=== PATIENT | female | born 1960 | race Caucasian/White ===

== ENCOUNTER 2017-12-19 16:28 | Inpatient (IN) | payer MEDICARE, OTHER ==
[2017-12-19] MEDS ORDERED: 0.9 % SODIUM CHLORIDE 10 ML DISP.SYRIN. IV (16:45)
[2017-12-19 17:00] LABS: BILIRUBIN,URINE SMALL (NEG); CLARITY,URINE CLEAR; GLUCOSE,URINE >=1000 mg/dL (NEG); NITRITE,URINE NEGATIVE (NEG); PROTEIN,URINE 30 mg/dL (NEG-TRACE); UROBILINOGEN,URINE 0.2 mg/dL (0.2 mg/dL)
[2017-12-19] MEDS: IPRATRPIUM/ALBUTEROL 0.5/2.5MG 3 ML NEBU. NEB ×2 (17:05→20:00)
[2017-12-19] MEDS: ALBUTEROL SULFATE 2.5 MG/3 ML NEBU. CONT NEB (17:05)
[2017-12-19] MEDS: ONDANSETRON PF 4 MG/2 ML VIAL. IV ×2 (17:06→23:54)
[2017-12-19] MEDS: IV NORMAL SALINE 1000ML BAG 1,000 ML IV (17:06)
[2017-12-19] MEDS: methylPREDNISolone SOD SUCC PF 125 MG/2 ML VIAL. IV (17:06)
[2017-12-19 17:09] LABS: ADD MAN DIFF? NO
[2017-12-19 17:10] LABS: BASO # 0.1 x10^3/uL (0.0-0.2); BASO % 1 % (0-3); EOS # 0.1 x10^3/uL (0.0-0.7); EOS % 1 % (0-3); HEMATOCRIT 52.5 % (36.0-47.0); HEMOGLOBIN 17.2 g/dL (12.0-15.5); LYMPH # 1.9 x10^3/uL (1.0-4.8); LYMPH % 14 % (24-48); MEAN CORPUSCULAR HEMOGLOBIN 30 pg (25-35); MEAN CORPUSCULAR HGB CONC 33 g/dL (31-37); MEAN CORPUSCULAR VOLUME 91 fL (79-100); MONO # 1.3 x10^3/uL (0.0-1.1); MONO % 9 % (0-9); NEUT # 10.4 x10^3uL (1.8-7.7); NEUT % 76 % (31-73); PLATELET COUNT 267 x10^3/uL (140-400); RED BLOOD COUNT 5.76 x10^6/uL (3.50-5.40); RED CELL DISTRIBUTION WIDTH 14.6 % (11.5-14.5); WHITE BLOOD COUNT 13.7 x10^3/uL (4.0-11.0)
[2017-12-19 17:14] LABS: COLOR,URINE DK YELLOW
[2017-12-19 17:18] LABS: BACTERIA,URINE FEW /HPF (0-FEW); SQUAMOUS EPITHELIAL CELL,UR MANY /LPF
[2017-12-19 17:20] LABS: INFLUENZA A PATIENT NEGATIVE (NEGATIVE); INFLUENZA B PATIENT NEGATIVE (NEGATIVE); OBC FLU VALID
[2017-12-19 17:30] LABS: LACTIC ACID 1.5 mmol/L (0.4-2.0)
[2017-12-19 17:35] LABS: ANION GAP 12 (6-14); BLOOD UREA NITROGEN 41 mg/dL (7-20); CALCIUM 9.9 mg/dL (8.5-10.1); CARBON DIOXIDE 28 mmol/L (21-32); CHLORIDE 91 mmol/L (98-107); GFR 57.1; GLUCOSE 278 mg/dL (70-99); POTASSIUM 4.6 mmol/L (3.5-5.1); SODIUM 131 mmol/L (136-145)
[2017-12-19 17:36] LABS: TROPONINI < 0.017 ng/mL (0.000-0.055)
[2017-12-19 17:39] LABS: ALBUMIN 3.8 g/dL (3.4-5.0); ALK PHOS 140 U/L (46-116); ALT (SGPT) 25 U/L (14-59); AST (SGOT) 14 U/L (15-37); DIRECT BILIRUBIN 0.4 mg/dL (0.0-0.2); LIPASE 126 U/L (73-393); MAGNESIUM 2.6 mg/dL (1.8-2.4); TOTAL BILIRUBIN 1.3 mg/dL (0.2-1.0)
[2017-12-19 17:41] LABS: NT-PRO BNP 75 pg/mL (0-124)
[2017-12-19 17:49] LABS: CREATINE KINASE 33 U/L (26-192)
[2017-12-19] MEDS: LIDO:MAALOX:DONNATAL 1:1:1 15 ML SINGLE DOSE SWSW (18:18)
[2017-12-19] MEDS: FAMOTIDINE 20 MG/2 ML VIAL IVP (18:20)
[2017-12-19] MEDS: IOHEXOL 300 MG/ML 100ML VIAL. IV (18:45)
[2017-12-19 18:50] LABS: ACETAMIN < 2 mcg/ml (10-30)
[2017-12-19] MEDS ORDERED: CONTRAST GIVEN MC (19:00)
[2017-12-19] MEDS ORDERED: ACETAMINOPHEN 325 MG TABLET. PO (19:15)
[2017-12-19] MEDS: HYDROCORTISONE SOD SUCC/PF 100 MG/2 ML VIAL. IV (19:48)
[2017-12-19] MEDS: HYDROcodone/APAP 10/325 1 TAB TABLET PO (20:22)
[2017-12-19] MEDS ORDERED: ALBUTEROL SULFATE 8GM INHALER. INH (23:30)
[2017-12-19 23:33] LABS: POC GLUCOSE 413 mg/dL (70-99)
[2017-12-19] MEDS ORDERED: ALBUTEROL SULFATE 2.5 MG/3 ML NEBU. NEB (23:45)
[2017-12-19] MEDS: SIMVASTATIN 40 MG TABLET. PO (23:57)
[2017-12-20] MEDS: HYDROcodone/APAP 5/325MG 1 TAB TABLET PO ×3 (00:02→20:41)
[2017-12-20] MEDS: IV NORMAL SALINE 1000ML BAG 1,000 ML IV ×3 (00:02→11:02)
[2017-12-20] MEDS: INSULIN DETEMIR 300 UNITS/3 ML INSULN.PEN. SQ ×2 (00:10→20:46)
[2017-12-20 01:34] LABS: TROPONINI < 0.170 ng/mL (0.000-0.055)
[2017-12-20] MEDS: IPRATRPIUM/ALBUTEROL 0.5/2.5MG 3 ML NEBU. NEB ×4 (07:08→19:16)
[2017-12-20] MEDS ORDERED: INSULIN ASPART 300 UNITS/3 ML INSULN.PEN SQ (08:15)
[2017-12-20 08:29] LABS: POC GLUCOSE 374 mg/dL (70-99)
[2017-12-20] MEDS: ALPRAZolam 0.25 MG TABLET PO ×3 (08:32→20:40)
[2017-12-20] MEDS: ONDANSETRON PF 4 MG/2 ML VIAL. IV (08:32)
[2017-12-20] MEDS: INSULIN ASPART 300 UNITS/3 ML INSULN.PEN SQ ×4 (08:38→17:29)
[2017-12-20 08:59] LABS: ALBUMIN 3.8 g/dL (3.4-5.0); ALBUMIN/GLOBULIN RATIO 0.9 (1.0-1.7); ALK PHOS 144 U/L (46-116); ALT (SGPT) 23 U/L (14-59); ANION GAP 15 (6-14); AST (SGOT) 14 U/L (15-37); BLOOD UREA NITROGEN 33 mg/dL (7-20); BUN/CREATININE RATIO 33 (6-20); CALCIUM 9.7 mg/dL (8.5-10.1); CARBON DIOXIDE 22 mmol/L (21-32); CHLORIDE 91 mmol/L (98-107); GFR 57.1; GLUCOSE 402 mg/dL (70-99); POTASSIUM 5.1 mmol/L (3.5-5.1); SODIUM 128 mmol/L (136-145); TOTAL BILIRUBIN 1.1 mg/dL (0.2-1.0); TOTAL PROTEIN 8.1 g/dL (6.4-8.2)
[2017-12-20 12:04] LABS: POC GLUCOSE 214 mg/dL (70-99)
[2017-12-20] MEDS: FAMOTIDINE 20 MG TABLET. PO (12:04)
[2017-12-20] MEDS: LIDO:MAALOX:DONNATAL 1:1:1 15 ML SINGLE DOSE SWSW (12:05)
[2017-12-20] MEDS: predniSONE 5 MG TABLET PO (12:05)
[2017-12-20] MEDS: cefTRIAXone IV Push 1 GM VIAL. IVP (13:11)
[2017-12-20 17:18] LABS: POC GLUCOSE 267 mg/dL (70-99)
[2017-12-20] MEDS: PANTOPRAZOLE 40 MG TABLET.DR. PO (17:19)
[2017-12-20 19:52] LABS: POC GLUCOSE 233 mg/dL (70-99)
[2017-12-20] MEDS: LISINOPRIL 10 MG TABLET PO ×2 (20:40)
[2017-12-20] MEDS: LACTOBACILLUS RHAMNOSUS GG 1 CAPSULE. PO (20:40)
[2017-12-20] MEDS: SIMVASTATIN 40 MG TABLET. PO (20:40)
[2017-12-20] MEDS ORDERED: FAMOTIDINE 20 MG TABLET. PO (21:00)
[2017-12-21] MEDS: HYDROcodone/APAP 5/325MG 1 TAB TABLET PO ×3 (01:08→21:01)
[2017-12-21] MEDS: INSULIN ASPART 300 UNITS/3 ML INSULN.PEN SQ ×6 (07:30→17:04)
[2017-12-21] MEDS: PANTOPRAZOLE 40 MG TABLET.DR. PO ×2 (07:54→17:00)
[2017-12-21 07:58] LABS: POC GLUCOSE 58 mg/dL (70-99)
[2017-12-21] MEDS: BISMUTH SUBSALICYLATE 262 MG/15 ML ORAL.SUSP 236ML BOTTLE. PO (08:32)
[2017-12-21] MEDS: predniSONE 5 MG TABLET PO (09:15)
[2017-12-21] MEDS: LACTOBACILLUS RHAMNOSUS GG 1 CAPSULE. PO ×2 (09:15→21:00)
[2017-12-21] MEDS: ALPRAZolam 0.25 MG TABLET PO ×2 (09:15→21:00)
[2017-12-21 09:25] LABS: ADD MAN DIFF? NO
[2017-12-21 09:31] LABS: BASO % 0 % (0-3); EOS % 0 % (0-3); HEMATOCRIT 49.2 % (36.0-47.0); HEMOGLOBIN 15.8 g/dL (12.0-15.5); LYMPH % 23 % (24-48); MEAN CORPUSCULAR HEMOGLOBIN 29 pg (25-35); MEAN CORPUSCULAR HGB CONC 32 g/dL (31-37); MEAN CORPUSCULAR VOLUME 92 fL (79-100); MONO # 1.3 x10^3/uL (0.0-1.1); MONO % 10 % (0-9); NEUT # 8.8 x10^3uL (1.8-7.7); NEUT % 67 % (31-73); PLATELET COUNT 284 x10^3/uL (140-400); RED BLOOD COUNT 5.36 x10^6/uL (3.50-5.40); RED CELL DISTRIBUTION WIDTH 14.4 % (11.5-14.5); WHITE BLOOD COUNT 13.1 x10^3/uL (4.0-11.0)
[2017-12-21 09:42] LABS: ANION GAP 7 (6-14); BLOOD UREA NITROGEN 20 mg/dL (7-20); CALCIUM 9.4 mg/dL (8.5-10.1); CARBON DIOXIDE 30 mmol/L (21-32); CHLORIDE 96 mmol/L (98-107); GFR 57.1; GLUCOSE 76 mg/dL (70-99); POTASSIUM 4.3 mmol/L (3.5-5.1); SODIUM 133 mmol/L (136-145)
[2017-12-21 10:05] LABS: TROPONINI < 0.017 ng/mL (0.000-0.055)
[2017-12-21 11:24] LABS: POC GLUCOSE 110 mg/dL (70-99)
[2017-12-21] MEDS: IV NORMAL SALINE 1000ML BAG 1,000 ML IV (12:01)
[2017-12-21] MEDS: cefTRIAXone IV Push 1 GM VIAL. IVP (12:55)
[2017-12-21 16:04] LABS: POC GLUCOSE 233 mg/dL (70-99)
[2017-12-21] MEDS: SIMVASTATIN 40 MG TABLET. PO (21:01)
[2017-12-21] MEDS: INSULIN DETEMIR 300 UNITS/3 ML INSULN.PEN. SQ (21:07)
[2017-12-22] MEDS: IV NORMAL SALINE 1000ML BAG 1,000 ML IV ×2 (00:01→14:58)
[2017-12-22 04:22] LABS: ADD MAN DIFF? NO
[2017-12-22 04:35] LABS: BASO % 1 % (0-3); EOS # 0.1 x10^3/uL (0.0-0.7); EOS % 1 % (0-3); HEMATOCRIT 41.1 % (36.0-47.0); HEMOGLOBIN 13.5 g/dL (12.0-15.5); LYMPH # 2.6 x10^3/uL (1.0-4.8); LYMPH % 34 % (24-48); MEAN CORPUSCULAR HEMOGLOBIN 31 pg (25-35); MEAN CORPUSCULAR HGB CONC 33 g/dL (31-37); MEAN CORPUSCULAR VOLUME 93 fL (79-100); MONO # 0.7 x10^3/uL (0.0-1.1); MONO % 10 % (0-9); NEUT # 4.3 x10^3uL (1.8-7.7); NEUT % 55 % (31-73); PLATELET COUNT 166 x10^3/uL (140-400); RED BLOOD COUNT 4.44 x10^6/uL (3.50-5.40); RED CELL DISTRIBUTION WIDTH 13.8 % (11.5-14.5); WHITE BLOOD COUNT 7.7 x10^3/uL (4.0-11.0)
[2017-12-22 04:59] LABS: ANION GAP 4 (6-14); BLOOD UREA NITROGEN 16 mg/dL (7-20); CALCIUM 8.2 mg/dL (8.5-10.1); CARBON DIOXIDE 29 mmol/L (21-32); CHLORIDE 101 mmol/L (98-107); CREATININE 0.6 mg/dL (0.6-1.0); GLUCOSE 154 mg/dL (70-99); POTASSIUM 4.1 mmol/L (3.5-5.1); SODIUM 134 mmol/L (136-145)
[2017-12-22] MEDS: INSULIN ASPART 300 UNITS/3 ML INSULN.PEN SQ ×6 (07:30→17:13)
[2017-12-22] MEDS: DEXTROSE 50% 25 GM / 50ML DISP.SYRIN. IV (07:33)
[2017-12-22 07:55] LABS: POC GLUCOSE 141 mg/dL (70-99)
[2017-12-22 08:06] LABS: POC GLUCOSE 53 mg/dL (70-99)
[2017-12-22 08:06] LABS: POC GLUCOSE 198 mg/dL (70-99)
[2017-12-22] MEDS: IV RINGERS,LACTATED 1000ML 1,000 ML IV ×2 (10:14→18:05)
[2017-12-22] MEDS ORDERED: fentaNYL PF VIAL 100 MCG/2 ML VIAL IV ×2 (10:15)
[2017-12-22] MEDS ORDERED: LIDOCAINE 1% PF 2 ML VIAL. ID (10:15)
[2017-12-22] MEDS ORDERED: MIDAZOLAM HCL/PF 2 MG/2 ML VIAL. IV (10:15)
[2017-12-22] MEDS ORDERED: PROPOFOL 20 ML IV (10:28)
[2017-12-22] MEDS ORDERED: MAALOX:LIDO:APAP 6:2:1 ORAL SUSPENSION 180 ML BOTTLE. PO (10:45)
[2017-12-22 11:21] LABS: ACTH 1.7 pg/mL (7.2-63.3)
[2017-12-22 11:43] LABS: POC GLUCOSE 116 mg/dL (70-99)
[2017-12-22] MEDS: predniSONE 5 MG TABLET PO (11:48)
[2017-12-22] MEDS: LACTOBACILLUS RHAMNOSUS GG 1 CAPSULE. PO ×2 (11:49→21:43)
[2017-12-22] MEDS: PANTOPRAZOLE 40 MG TABLET.DR. PO ×2 (11:49→16:30)
[2017-12-22] MEDS: ALPRAZolam 0.25 MG TABLET PO ×2 (11:49→21:43)
[2017-12-22] MEDS: AZITHROMYCIN 500 MG in IV NORMAL SALINE 250ML 250 ML IV (12:31)
[2017-12-22] MEDS: cefTRIAXone IV Push 1 GM VIAL. IVP (12:32)
[2017-12-22] MEDS: SIMETHICONE 80 MG TAB.CHEW PO (21:43)
[2017-12-22] MEDS: HYDROcodone/APAP 5/325MG 1 TAB TABLET PO (21:43)
[2017-12-22] MEDS: INSULIN DETEMIR 300 UNITS/3 ML INSULN.PEN. SQ (21:44)
[2017-12-23] MEDS: IV NORMAL SALINE 1000ML BAG 1,000 ML IV ×2 (03:12→16:09)
[2017-12-23 07:25] LABS: POC GLUCOSE 257 mg/dL (70-99)
[2017-12-23 08:17] LABS: POC GLUCOSE 194 mg/dL (70-99)
[2017-12-23 08:17] LABS: POC GLUCOSE 257 mg/dL (70-99)
[2017-12-23] MEDS: PANTOPRAZOLE 40 MG TABLET.DR. PO ×2 (08:56→16:09)
[2017-12-23] MEDS: LACTOBACILLUS RHAMNOSUS GG 1 CAPSULE. PO ×2 (08:56→21:26)
[2017-12-23] MEDS: predniSONE 5 MG TABLET PO (08:57)
[2017-12-23] MEDS: ALPRAZolam 0.25 MG TABLET PO ×2 (08:57→21:26)
[2017-12-23] MEDS: INSULIN ASPART 300 UNITS/3 ML INSULN.PEN SQ ×6 (09:05→16:50)
[2017-12-23 11:41] LABS: POC GLUCOSE 141 mg/dL (70-99)
[2017-12-23] MEDS: cefTRIAXone IV Push 1 GM VIAL. IVP (12:27)
[2017-12-23] MEDS: AZITHROMYCIN 500 MG in IV NORMAL SALINE 250ML 250 ML IV (12:27)
[2017-12-23 16:36] LABS: POC GLUCOSE 270 mg/dL (70-99)
[2017-12-23 21:10] LABS: POC GLUCOSE 300 mg/dL (70-99)
[2017-12-23] MEDS: CALCIUM CARBONATE 500 MG TAB.CHEW PO (21:26)
[2017-12-23] MEDS: HYDROcodone/APAP 5/325MG 1 TAB TABLET PO (21:26)
[2017-12-23] MEDS: SIMETHICONE 80 MG TAB.CHEW PO (21:26)
[2017-12-23] MEDS: INSULIN DETEMIR 300 UNITS/3 ML INSULN.PEN. SQ (21:33)
[2017-12-24 04:28] LABS: ADD MAN DIFF? NO
[2017-12-24 04:36] LABS: POC GLUCOSE 162 mg/dL (70-99)
[2017-12-24] MEDS: IV NORMAL SALINE 1000ML BAG 1,000 ML IV (04:41)
[2017-12-24 04:43] LABS: BASO # 0.1 x10^3/uL (0.0-0.2); BASO % 1 % (0-3); EOS # 0.2 x10^3/uL (0.0-0.7); EOS % 3 % (0-3); HEMATOCRIT 40.5 % (36.0-47.0); HEMOGLOBIN 13.6 g/dL (12.0-15.5); LYMPH # 2.8 x10^3/uL (1.0-4.8); LYMPH % 38 % (24-48); MEAN CORPUSCULAR HEMOGLOBIN 31 pg (25-35); MEAN CORPUSCULAR HGB CONC 34 g/dL (31-37); MEAN CORPUSCULAR VOLUME 92 fL (79-100); MONO # 0.5 x10^3/uL (0.0-1.1); MONO % 7 % (0-9); NEUT # 3.8 x10^3uL (1.8-7.7); NEUT % 52 % (31-73); PLATELET COUNT 193 x10^3/uL (140-400); RED BLOOD COUNT 4.42 x10^6/uL (3.50-5.40); RED CELL DISTRIBUTION WIDTH 13.5 % (11.5-14.5); WHITE BLOOD COUNT 7.4 x10^3/uL (4.0-11.0)
[2017-12-24 05:10] LABS: ALBUMIN 2.6 g/dL (3.4-5.0); ALBUMIN/GLOBULIN RATIO 0.8 (1.0-1.7); ALK PHOS 119 U/L (46-116); ALT (SGPT) 17 U/L (14-59); ANION GAP 5 (6-14); AST (SGOT) 11 U/L (15-37); BLOOD UREA NITROGEN 15 mg/dL (7-20); BUN/CREATININE RATIO 25 (6-20); CALCIUM 8.4 mg/dL (8.5-10.1); CARBON DIOXIDE 28 mmol/L (21-32); CHLORIDE 102 mmol/L (98-107); CREATININE 0.6 mg/dL (0.6-1.0); GLUCOSE 190 mg/dL (70-99); POTASSIUM 3.7 mmol/L (3.5-5.1); SODIUM 135 mmol/L (136-145); TOTAL BILIRUBIN 0.2 mg/dL (0.2-1.0); TOTAL PROTEIN 5.8 g/dL (6.4-8.2)
[2017-12-24] MEDS: INSULIN ASPART 300 UNITS/3 ML INSULN.PEN SQ ×4 (07:30→12:07)
[2017-12-24 08:01] LABS: POC GLUCOSE 79 mg/dL (70-99)
[2017-12-24 08:01] LABS: POC GLUCOSE 64 mg/dL (70-99)
[2017-12-24] MEDS: predniSONE 5 MG TABLET PO (09:10)
[2017-12-24] MEDS: ALPRAZolam 0.25 MG TABLET PO (09:10)
[2017-12-24] MEDS: PANTOPRAZOLE 40 MG TABLET.DR. PO (09:10)
[2017-12-24] MEDS: CALCIUM CARBONATE 500 MG TAB.CHEW PO (09:10)
[2017-12-24] MEDS: LACTOBACILLUS RHAMNOSUS GG 1 CAPSULE. PO (09:10)
[2017-12-24] MEDS: HYDROcodone/APAP 5/325MG 1 TAB TABLET PO (09:47)
[2017-12-24 11:22] LABS: POC GLUCOSE 200 mg/dL (70-99)
[2017-12-24] MEDS: AZITHROMYCIN 500 MG in IV NORMAL SALINE 250ML 250 ML IV (12:02)
[2017-12-24] MEDS: cefTRIAXone IV Push 1 GM VIAL. IVP (13:32)
[2017-12-25 17:19] LABS: CORTISOL UR 817 ug/L (Undefined); CORTISOL URINE 24HR 1287 ug/24 hr (0-50)
== END 2017-12-24 14:35 | disposition home or self-care (01) | DRG 383 ==
LOC: ER 16:28 → 5 NORTH 20:22
PROC: 0DB38ZX Excision of Lower Esophagus, Via Natural or Artificial Opening Endoscopic, Diagnostic (ICD-10-PCS; principal; 2017-12-22 10:30)
PROC: 0DB78ZX Excision of Stomach, Pylorus, Via Natural or Artificial Opening Endoscopic, Diagnostic (ICD-10-PCS; 2017-12-22 10:30)
DX: K26.9 Duodenal ulcer, unspecified as acute or chronic, without hemorrhage or perforation (principal); J18.0 Bronchopneumonia, unspecified organism; E11.649 Type 2 diabetes mellitus with hypoglycemia without coma; C67.9 Malignant neoplasm of bladder, unspecified; E87.1 Hypo-osmolality and hyponatremia; E11.65 Type 2 diabetes mellitus with hyperglycemia; E86.1 Hypovolemia; J44.0 Chronic obstructive pulmonary disease with (acute) lower respiratory infection; N39.0 Urinary tract infection, site not specified; K21.0 Gastro-esophageal reflux disease with esophagitis; B34.9 Viral infection, unspecified; M19.90 Unspecified osteoarthritis, unspecified site; I25.2 Old myocardial infarction; I10 Essential (primary) hypertension; M81.0 Age-related osteoporosis without current pathological fracture; M06.9 Rheumatoid arthritis, unspecified; F17.210 Nicotine dependence, cigarettes, uncomplicated; F12.90 Cannabis use, unspecified, uncomplicated; E78.5 Hyperlipidemia, unspecified; Z85.51 Personal history of malignant neoplasm of bladder; Z90.710 Acquired absence of both cervix and uterus; Z79.52 Long term (current) use of systemic steroids; Z88.0 Allergy status to penicillin; Z88.8 Allergy status to other drugs, medicaments and biological substances
CPT/HCPCS: 36415; 51701; 70450; 71045; 71046; 74176; 80048; 80053; 80076; 81001; 82024; 82530; 82553; 82962; 83605; 83690; 83735; 83880; 84443; 84484; 85025; 87040; 87086; 87186; 87804; 87804-59; 88305; 88342; 93005; 94640; 94644; 94760; 96361; 96374; 96375; 99291; 99291-25; 99406; J0456; J0696; J1720; J1815; J2405; J2704; J2930; J7030; J7042; J7050; J7120; J7512; J7613; J7620; S0028